=== PATIENT | male | born 1935 | race Caucasian/White ===

== ENCOUNTER 2016-10-24 13:48 | Emergency (ER) | payer MEDICARE, OTHER ==
[~2016-10-24 13:48] MED LIST: PLAVIX 75 MG TA75 MG PO
[2016-10-24 16:26] LABS: HEMOGLOBIN 12.9 gm/dl (14.0-17.5); RED BLOOD COUNT 4.46 M/UL (4.20-5.50); WHITE BLOOD COUNT 9.1 K/UL (4.5-11.0)
[2017-05-20] MEDS ORDERED: ELIQUIS5 MG PO (13:13)
[2017-05-20] MEDS ORDERED: LIPITOR TAB 2020 MG PO (13:13)
[2017-05-20] MEDS ORDERED: FINASTERIDE5 MG PO (13:13)
[2017-05-20] MEDS ORDERED: FLONASE 0.05% N16 GM (13:14)
[2017-05-20] MEDS ORDERED: HYDRALAZINE HCL50 MG PO (13:14)
[2017-05-20] MEDS ORDERED: LISINOPRIL40 MG PO (13:15)
[2017-05-20] MEDS ORDERED: METOPROLOL SUC100 MG PO (13:15)
[2017-05-20] MEDS ORDERED: PROTONIX40 MG PO (13:15)
[2017-05-20] MEDS ORDERED: PROAIR HFA8.5 GM INH (13:16)
[2017-05-20] MEDS ORDERED: SPIRIVA18 MCG INH (13:16)
[2017-05-20] MEDS ORDERED: FLOMAX 0.4 MG0.4 MG PO (13:17)
[2017-05-20] MEDS ORDERED: SYMBICORT 16010.2 GM INH (13:17)
[2017-05-20] MEDS ORDERED: VITAMIN D250000 UNIT PO (13:18)
[2017-05-21] MEDS ORDERED: IPRAT-ALBUT 0.5-3 ML INH (14:03)
== END 2016-10-24 18:03 | disposition home or self-care (01) ==
LOC: ER1 13:48
PROVIDERS: Emergency Medicine
DX: E86.0 Dehydration (principal); R05 Cough; I10 Essential (primary) hypertension; Z95.810 Presence of automatic (implantable) cardiac defibrillator; Z79.01 Long term (current) use of anticoagulants; Z79.899 Other long term (current) drug therapy
CPT/HCPCS: 71010; 80053; 82550; 82553; 83874; 84484; 85025; 93005; 96360; 99283; J1940; J2930

== ENCOUNTER 2016-10-25 19:27 | Emergency (ER) | payer MEDICARE, OTHER ==
[2016-10-25 20:37] LABS: HEMOGLOBIN 11.8 gm/dl (14.0-17.5); RED BLOOD COUNT 4.12 M/UL (4.20-5.50); WHITE BLOOD COUNT 7.7 K/UL (4.5-11.0)
[2017-05-20] MEDS ORDERED: FINASTERIDE5 MG PO (13:13)
[2017-05-20] MEDS ORDERED: LIPITOR TAB 2020 MG PO (13:13)
[2017-05-20] MEDS ORDERED: ELIQUIS5 MG PO (13:13)
[2017-05-20] MEDS ORDERED: HYDRALAZINE HCL50 MG PO (13:14)
[2017-05-20] MEDS ORDERED: FLONASE 0.05% N16 GM (13:14)
[2017-05-20] MEDS ORDERED: PROTONIX40 MG PO (13:15)
[2017-05-20] MEDS ORDERED: LISINOPRIL40 MG PO (13:15)
[2017-05-20] MEDS ORDERED: METOPROLOL SUC100 MG PO (13:15)
[2017-05-20] MEDS ORDERED: SPIRIVA18 MCG INH (13:16)
[2017-05-20] MEDS ORDERED: PROAIR HFA8.5 GM INH (13:16)
[2017-05-20] MEDS ORDERED: FLOMAX 0.4 MG0.4 MG PO (13:17)
[2017-05-20] MEDS ORDERED: SYMBICORT 16010.2 GM INH (13:17)
[2017-05-20] MEDS ORDERED: VITAMIN D250000 UNIT PO (13:18)
[2017-05-21] MEDS ORDERED: IPRAT-ALBUT 0.5-3 ML INH (14:03)
== END 2016-10-26 10:20 | disposition home or self-care (01) ==
LOC: ER1 19:27
PROVIDERS: Student in an Organized Health Care Education/Training Program
DX: I13.0 Hypertensive heart and chronic kidney disease with heart failure and stage 1 through stage 4 chronic kidney disease, or unspecified chronic kidney disease (principal); I50.9 Heart failure, unspecified; N18.6 End stage renal disease; J44.9 Chronic obstructive pulmonary disease, unspecified; R09.02 Hypoxemia; E11.22 Type 2 diabetes mellitus with diabetic chronic kidney disease; I25.10 Atherosclerotic heart disease of native coronary artery without angina pectoris; Z95.810 Presence of automatic (implantable) cardiac defibrillator; Z95.5 Presence of coronary angioplasty implant and graft
CPT/HCPCS: 36415; 36600; 70450; 71010; 80053; 82550; 82553; 82803; 83605; 83874; 83880; 84484; 85025; 87040; 93005; 94640; 94664; 96374; 96375; 99285